=== PATIENT | female | born 1935 | race Caucasian/White ===

== ENCOUNTER 2019-05-23 13:45 | Inpatient (IN) ==
[2019-05-23 14:31] LABS: Basophils % 0.3 %; Eosinophils # 0.1 K/mcL (0.0-0.6); Eosinophils % 1.8 %; Hemoglobin 6.4 g/dL (11.5-15.4); Immature Granulocytes % 1.8 % (0-4); Lymphocytes # 0.4 K/mcL (0.6-4.6); Lymphocytes % 11.2 %; Mean Corpuscular Hemoglobin 30.9 pg (28.0-33.3); Mean Corpuscular Volume 96.6 fL (83.0-100.0); Mean Platelet Volume 10.3 fL (9.4-12.4); Monocytes # 0.3 K/mcL (0.0-1.3); Monocytes % 7.7 %; Neutrophils # 2.6 K/mcL (1.6-8.9); Platelet Count 191 K/mcL (140-400); Red Blood Count 2.07 M/mcL (3.82-4.97); Red Cell Distribution Width 16.1 % (11.5-14.5); Segmented Neutrophils % 77.2 %; White Blood Count 3.4 K/mcL (4.3-11.1)
[2019-05-23 15:00] LABS: Alanine Aminotransferase 93 Units/L (7-52); Albumin 2.5 g/dL (3.5-5.7); Albumin/Globulin Ratio 0.7 (1.1-2.2); Alkaline Phosphatase 995 Units/L (34-104); Aspartate Amino Transferase 113 Units/L (13-39); BUN/Creatinine Ratio 13 (6-26); Bilirubin,Direct 4.6 mg/dL (0.0-0.2); Bilirubin,Indirect 1.9 mg/dL (0.0-1.0); Bilirubin,Total 6.5 mg/dL (0.3-1.0); Blood Urea Nitrogen 39 mg/dL (8-23); Calcium 8.1 mg/dL (8.6-10.3); Carbon Dioxide 20 mEq/L (23-29); Chloride 108 mEq/L (98-107); Creatine Kinase 51 Units/L (30-223); Ethanol < 10 mg/dL (Less than 10); Globulin 3.5 g/dL (2.4-3.5); Glucose 128 mg/dL (70-105); Lipase 33 Units/L (11-82); Osmolality,Calculated 297 (280-300); Sodium 138 mEq/L (136-145); Troponin I 0.06 ng/mL (< 0.04); eGFR For African Americans 18 (> 60); eGFR For Non-African Americans 15 (> 60)
[2019-05-23 15:20] LABS: Bilirubin,Urine Large (Negative); Blood,Urine Large (Negative); Clarity,Urine Cloudy (Clear); Color,Urine Dark Yellow (Yellow); Glucose,Urine (UA) Normal (Normal); Ketones,Urine Negative (Negative); Leukocyte Esterase,Urine Small (Negative); Nitrite,Urine Positive (Negative); PH,Urine 5.5 pH Units (5.0-8.0); Protein,Urine >=300 mg/dL (Neg-Trace); Specific Gravity,Urine 1.019 (1.010-1.025); Urobilinogen,Urine Normal (Normal)
[2019-05-23 15:23] LABS: Hepatitis B Surface Antigen Nonreactive (Nonreactive)
[2019-05-23 15:23] LABS: Bacteria,Urine Many per hpf (None-Few); Hyaline Casts,Urine Few per lpf (None-Few); Squamous Epithelial Cell,Urine Moderate per lpf (None-Few); WBC,Urine 30-50 per hpf (0-3)
[2019-05-23 15:29] LABS: Amphetamine Screen,Urine Negative ng/mL (Cutoff=1000); Barbiturate Screen,Urine Negative ng/mL (Cutoff=200); Benzodiazepines Screen,Urine Negative ng/mL (Cutoff=200); Cannabinoid Screen,Urine Negative ng/mL (Cutoff = 50); Cocaine Screen,Urine Negative ng/mL (Cutoff= 300); Opiate Screen,Urine Negative ng/mL (Cutoff=300); Phencyclidine Screen,Urine Negative ng/mL (Cutoff=25)
[2019-05-23] MEDS ORDERED: Naloxone 0.4 MG/ML INJ IVP PRN (15:47)
[2019-05-23] MEDS ORDERED: Ondansetron 4 MG/2 ML VIAL IVP PRN (15:47)
[2019-05-23 15:48] LABS: RBC,Urine 0-3 per hpf (0-3)
[2019-05-23] MEDS ORDERED: *HR* LORazepam 2 MG/ML VIAL IVP PRN (15:49)
[2019-05-23] MEDS ORDERED: *HR* LORazepam Oral Conc 2 MG/ML PO PRN (15:49)
[2019-05-23] MEDS ORDERED: Atropine Sulfate 1% 40 DROP/2 ML BOTTLE SL PRN (15:49)
[2019-05-23] MEDS ORDERED: Morphine Sulfate 2 MG/ML SYRINGE IVP PRN (15:49)
[2019-05-23 15:52] LABS: Hepatitis C Virus Antibody Nonreactive (Nonreactive)
[2019-05-23 15:53] LABS: Hepatitis B Core IgM Nonreactive (Nonreactive)
[2019-05-23 15:54] LABS: Hepatitis A Antibody IgM Nonreactive (Nonreactive)
[2019-05-23 16:08] LABS: Acetaminophen < 10 mcg/mL (10-20); Salicylate < 2.5 mg/dL (15.0-30.0)
[2019-05-23 16:09] LABS: Activated Partial Thrombo Time 49.1 Seconds (26.0-36.0)
[2019-05-23 16:22] LABS: INR 1.3; Prothrombin Time 14.7 Seconds (9.4-12.1)
[2019-05-23] MEDS ORDERED: Sodium Bicarbonate 75 MEQ in 0.45 % Sodium Chloride 1,000 ML IVC SCH (17:00)
[2019-05-23] MEDS ORDERED: Nicotine 14 MG PATCH.TD24 TD PRN (17:03)
[2019-05-23] MEDS: cefTRIAXone 1,000 MG in 0.9 % Sodium Chloride Mini Bag 100 ML IVPB SCH (17:59)
[2019-05-24 01:08] LABS: VBG HCO3 24 mEq/L (21-27); VBG PCO2 38 mmHg (41-51); VBG PH 7.41 pH Units (7.32-7.42); VBG PO2 188 mmHg (25-50)
[2019-05-24 01:13] LABS: Red Cell Distribution Width 16.2 % (11.5-14.5)
[2019-05-24 01:14] LABS: Hematocrit 16.1 % (35.3-44.9); Mean Corpuscular HGB Conc 31.7 g/dL (31.6-35.5); Mean Corpuscular Hemoglobin 30.4 pg (28.0-33.3); Mean Corpuscular Volume 95.8 fL (83.0-100.0); Platelet Count 140 K/mcL (140-400); Red Blood Count 1.68 M/mcL (3.82-4.97); White Blood Count 2.5 K/mcL (4.3-11.1)
[2019-05-24 01:17] LABS: Hemoglobin 5.1 g/dL (11.5-15.4)
[2019-05-24 01:29] LABS: Albumin 2.1 g/dL (3.5-5.7); Albumin/Globulin Ratio 0.7 (1.1-2.2); Bilirubin,Direct 4.6 mg/dL (0.0-0.2); Bilirubin,Indirect 1.5 mg/dL (0.0-1.0); Bilirubin,Total 6.1 mg/dL (0.3-1.0); Calcium 7.6 mg/dL (8.6-10.3); Globulin 3.1 g/dL (2.4-3.5); Magnesium 2.1 mg/dL (1.6-2.6); Potassium 3.6 mEq/L (3.5-5.1); Total Protein 5.2 g/dL (6.4-8.9)
[2019-05-24 06:45] VITALS: BP 142/80
[2019-05-24] MEDS: cefTRIAXone 1,000 MG in 0.9 % Sodium Chloride Mini Bag 100 ML IVPB SCH (10:01)
[2019-05-24 15:51] LABS: Acinetobacter baumannii by PCR Not Detected (Not Detect); Candida albicans by PCR Not Detected (Not Detect); Candida glabrata by PCR Not Detected (Not Detect); Candida krusei by PCR Not Detected (Not Detect); Candida parapsilosis by PCR Not Detected (Not Detect); Candida tropicalis by PCR Not Detected (Not Detect); Enterobacter cloacae Cmplx PCR Not Detected (Not Detect); Enterobacteriaceae by PCR Not Detected (Not Detect); Enterococcus by PCR Not Detected (Not Detect); Escherichia coli by PCR Not Detected (Not Detect); Klebsiella oxytoca by PCR Not Detected (Not Detect); Klebsiella pneumoniae by PCR Not Detected (Not Detect); Proteus by PCR Not Detected (Not Detect); Pseudomonas aeruginosa by PCR Not Detected (Not Detect); Serratia marcescens by PCR Not Detected (Not Detect); Staphylococcus aureus by PCR Not Detected (Not Detect); Staphylococcus by PCR DETECTED (Not Detect); Streptococcus agalactiae(B)PCR Not Detected (Not Detect); Streptococcus by PCR Not Detected (Not Detect); Streptococcus pneumoniae PCR Not Detected (Not Detect); Streptococcus pyogenes (A) PCR Not Detected (Not Detect); mecA Methicillin-Resist Gene DETECTED (Not Detect)
== END 2019-05-24 12:04 | disposition hospice, inpatient (51) | DRG 435 ==
LOC: EMEROOARM 13:45 → 2ANU 17:05
PROVIDERS: ADMIT Internal Medicine; ATTEND Internal Medicine

== ENCOUNTER 2019-05-24 09:59 | Inpatient (IN) ==
[2019-05-24] MEDS ORDERED: Atropine Sulfate 1% 40 DROP/2 ML BOTTLE SL PRN (10:33)
[2019-05-24] MEDS ORDERED: Haloperidol Lactate 5 MG/ML VIAL IVP PRN (10:33)
[2019-05-24] MEDS ORDERED: Bisacodyl 10 MG RECTAL SUPPOSITORY RC PRN (10:33)
[2019-05-24] MEDS ORDERED: Morphine Sulfate 2 MG/ML SYRINGE IVP PRN (10:48)
[2019-05-24] MEDS ORDERED: *HR* FentaNYL (PF) 100 MCG/2 ML VIAL IVP PRN (10:52)
[2019-05-24] MEDS: *HR* LORazepam 2 MG/ML VIAL IVP PRN ×2 (17:41→22:55)
[2019-05-24] MEDS ORDERED: lamoTRIgine 100 MG TABLET PO SCH (21:00)
[2019-05-24] MEDS: Ondansetron ODT 4 MG TAB.RAPDIS SL PRN (22:54)
[2019-05-24] MEDS: risperiDONE 1 MG TABLET PO SCH (22:55)
[2019-05-25] MEDS: lamoTRIgine 100 MG TABLET PO SCH ×3 (08:31→22:51)
[2019-05-25] MEDS: risperiDONE 1 MG TABLET PO SCH (08:31)
[2019-05-25] MEDS: risperiDONE 0.25 MG TABLET PO SCH (08:31)
[2019-05-25] MEDS: *HR* LORazepam Oral Conc 2 MG/ML SL PRN (11:16)
[2019-05-25] MEDS: Ondansetron ODT 4 MG TAB.RAPDIS SL PRN (11:16)
[2019-05-26] MEDS: *HR* LORazepam Oral Conc 2 MG/ML SL PRN (04:53)
[2019-05-26] MEDS ORDERED: lamoTRIgine 100 MG TABLET PO SCH (09:00)
[2019-05-26] MEDS: risperiDONE 0.25 MG TABLET PO SCH (09:25)
[2019-05-26] MEDS ORDERED: *HR* FentaNYL (PF) 100 MCG/2 ML VIAL IVP PRN (10:51)
[2019-05-26] MEDS ORDERED: Haloperidol Oral Conc 10 MG/5 ML UDC PO ONE (11:19)
[2019-05-26] MEDS ORDERED: Haloperidol Lactate 5 MG/ML VIAL IM ONE (11:35)
[2019-05-26] MEDS: lamoTRIgine 100 MG TABLET PO SCH (13:03)
[2019-05-26] MEDS: Nicotine 21 MG PATCH.TD24 TD SCH (13:14)
[2019-05-26] MEDS: Haloperidol Lactate 5 MG/ML VIAL IVP PRN (13:18)
[2019-05-26] MEDS: Haloperidol Oral Conc 10 MG/5 ML UDC PO SCH ×2 (16:41→20:52)
[2019-05-26] MEDS ORDERED: risperiDONE 1 MG TABLET PO SCH (21:00)
[2019-05-27] MEDS: Haloperidol Oral Conc 10 MG/5 ML UDC PO SCH ×5 (00:11→18:56)
[2019-05-27] MEDS: Nicotine 21 MG PATCH.TD24 TD SCH (09:18)
[2019-05-27] MEDS: Ondansetron ODT 4 MG TAB.RAPDIS SL PRN (17:28)
[2019-05-27] MEDS: Haloperidol Lactate 5 MG/ML VIAL IVP PRN (17:52)
[2019-05-28] MEDS: Haloperidol Oral Conc 10 MG/5 ML UDC PO SCH ×5 (00:08→23:56)
[2019-05-28] MEDS: Ondansetron ODT 4 MG TAB.RAPDIS SL PRN (02:32)
[2019-05-28] MEDS: Nicotine 21 MG PATCH.TD24 TD SCH (10:32)
[2019-05-28] MEDS: lamoTRIgine 100 MG TABLET PO SCH ×2 (12:45→19:42)
[2019-05-29] MEDS: Haloperidol Oral Conc 10 MG/5 ML UDC PO SCH ×4 (05:57→23:48)
[2019-05-29] MEDS: Haloperidol Lactate 5 MG/ML VIAL IVP PRN (07:07)
[2019-05-29] MEDS: Nicotine 21 MG PATCH.TD24 TD SCH (09:13)
[2019-05-29] MEDS: lamoTRIgine 100 MG TABLET PO SCH ×3 (09:13→20:13)
[2019-05-30] MEDS: Haloperidol Oral Conc 10 MG/5 ML UDC PO SCH ×2 (05:48→12:12)
[2019-05-30 07:03] VITALS: BP 147/79
[2019-05-30] MEDS: lamoTRIgine 100 MG TABLET PO SCH ×2 (08:15→12:12)
[2019-05-30] MEDS: Nicotine 21 MG PATCH.TD24 TD SCH (08:15)
== END 2019-05-30 13:06 | disposition hospice, home (50) | DRG 951 ==
LOC: 2ANU 12:09
PROVIDERS: ADMIT Internal Medicine Hospice and Palliative Medicine; ATTEND Internal Medicine Hospice and Palliative Medicine